=== PATIENT | female | born 1980 | race Native Hawaiian/Other Pacific Islander ===

== ENCOUNTER 2019-10-30 13:23 | Outpatient (CLI) | payer OTHER | END 2019-10-30 19:02 | disposition home or self-care (01) | LOC: LAB 13:23 | DX: Z20.828 Contact with and (suspected) exposure to other viral communicable diseases (principal); R11.2 Nausea with vomiting, unspecified; R19.7 Diarrhea, unspecified | CPT/HCPCS: 87635; G2023; U00003 ==